=== PATIENT | male | born 1965 | race Caucasian/White ===

== ENCOUNTER 2018-09-19 22:24 | Emergency (ER) | payer OTHER ==
[~2018-09-19] VITALS: Ht 172.7 cm; Wt 120.2 kg
[2018-09-19] MEDS ORDERED: LOTREL 5-20 MG1 CAP (22:47)
[2018-09-19] MEDS ORDERED: ACTOS45 MG (22:51)
== END 2018-09-20 10:55 | disposition home or self-care (01) ==
LOC: ER 22:24 → EDSEX 22:30 → ER 09-20 10:55
DX: K29.70 Gastritis, unspecified, without bleeding (principal); R10.13 Epigastric pain